=== PATIENT | male | born 1955 | race Caucasian/White ===

== ENCOUNTER 2021-08-07 07:29 | Day surgery (SDC) | payer BC ==
[~2021-08-07] VITALS: Ht 180.3 cm; Wt 99.8 kg
[~2021-08-07 07:29] MED LIST: ASPI-543 PO; ATOR-47 PO; CHOL1CAP58 PO; CYCL-839 PO; IBUP600T27 PO; LISI-275 PO; NITR1SPR TL; RANO10003 PO; SIMV-13 PO; TRAM50TA2 PO
[2021-08-07] MEDS ORDERED: HEPARIN SODIUM (PORCINE) 5000 UNITS/ML 1ML VIAL ONE (10:33)
[2021-08-07] MEDS ORDERED: ANGIOMAX 250 MG VIAL IV ONE (10:33)
[2021-08-07] MEDS ORDERED: VERAPAMIL 2.5MG/ML INJ 2ML VIAL IV ONE (10:34)
[2021-08-07] MEDS ORDERED: MIDAZOLAM HCL 2MG/2ML 2ml VIAL (1mg/ml) ONE (10:34)
[2021-08-07] MEDS ORDERED: fentaNYL CITRATE 100 MCG/2 ML VL ONE (10:34)
[2021-08-07] MEDS ORDERED: SODIUM CHL 0.9% 50 ML ONE (10:34)
[2021-08-07] MEDS ORDERED: IODIXANOL 320MG/ML 100ML BTL IV ONE (10:40)
[2021-08-07] MEDS ORDERED: LIDOCAINE 2%HCL (LOCAL ANESTH.) INJ 20ML MDV ONE (10:40)
[2021-08-07] MEDS ORDERED: TICAGRELOR 90 MG TAB ONE (11:34)
[2021-08-07] MEDS ORDERED: ASPirin 325 MG TAB ONE (11:35)
== END 2021-08-07 15:00 | disposition home or self-care (01) ==
LOC: CATH 07:29
PROVIDERS: ATTEND Internal Medicine
DX: R94.39 Abnormal result of other cardiovascular function study (principal); I25.118 Atherosclerotic heart disease of native coronary artery with other forms of angina pectoris; I11.9 Hypertensive heart disease without heart failure; I25.9 Chronic ischemic heart disease, unspecified; I25.2 Old myocardial infarction; Z95.1 Presence of aortocoronary bypass graft; I25.82 Chronic total occlusion of coronary artery; Z87.891 Personal history of nicotine dependence; Z82.49 Family history of ischemic heart disease and other diseases of the circulatory system; Z79.82 Long term (current) use of aspirin; Z88.0 Allergy status to penicillin; Z20.822 Contact with and (suspected) exposure to COVID-19
CPT/HCPCS: 93458; C1726; C1760; C1769; C1874; C1887; C1894; C9600; J0583; J1644; J2250; J3010; Q9967; U0003; 99152; 99153

== ENCOUNTER 2021-08-21 06:38 | Day surgery (SDC) | payer BC ==
[2021-08-21] VITALS (10 sets, daily range): BP systolic 141–163; BP diastolic 86–94
[~2021-08-21] VITALS: Ht 180.3 cm; Wt 99.8 kg
[2021-08-21] MEDS ORDERED: ANGIOMAX 250 MG VIAL IV ONE (07:55)
[2021-08-21] MEDS ORDERED: fentaNYL CITRATE 100 MCG/2 ML VL ONE (07:56)
[2021-08-21] MEDS ORDERED: MIDAZOLAM HCL 2MG/2ML 2ml VIAL (1mg/ml) ONE (07:56)
[2021-08-21] MEDS ORDERED: SODIUM CHL 0.9% 0 ML ONE (07:56)
[2021-08-21] MEDS ORDERED: LIDOCAINE 2%HCL (LOCAL ANESTH.) INJ 20ML MDV ONE (07:58)
[2021-08-21] MEDS ORDERED: IODIXANOL 320MG/ML 100ML BTL IV ONE (07:58)
[2021-08-21] MEDS ORDERED: diphenhdrAMINE HCL 50 MG/1 ML VL ONE (08:27)
== END 2021-08-21 12:25 | disposition home or self-care (01) ==
LOC: CATH 06:38
PROVIDERS: ATTEND Internal Medicine
DX: I73.9 Peripheral vascular disease, unspecified (principal); I11.0 Hypertensive heart disease with heart failure; I50.9 Heart failure, unspecified; E78.5 Hyperlipidemia, unspecified; I25.2 Old myocardial infarction; Z95.5 Presence of coronary angioplasty implant and graft; Z87.891 Personal history of nicotine dependence; Z20.822 Contact with and (suspected) exposure to COVID-19
CPT/HCPCS: 36246; 93005; 93925; C1769; C1894; J1200; J1644; J2250; J3010; U0003; 99152; Q9967